=== PATIENT | female | born 1980 | race Caucasian/White ===

== ENCOUNTER → 2021-03-21 | Outpatient (CLI) | payer OTHER ==
[~2021-03-21] MED LIST: Bleph-10 Opth S15 ML BOTHEYES; FERRALET 90 DU1 EACH PO; HYDACE5 PO; IBUP600 PO; IBUP800 PO; MULVITMINE PO; OXYACE5T PO; OXYC5 PO; PROM25 PO; Zithromax250 MG PO
== END | disposition home or self-care (01) ==
LOC: LAB 13:25 → LAB SHORT 13:25
DX: N95.1 Menopausal and female climacteric states (principal)
CPT/HCPCS: 83001; 84443

== ENCOUNTER → 2021-04-18 | Outpatient (CLI) | payer OTHER | END | disposition home or self-care (01) | LOC: LAB SHORT 12:14 | DX: L82.1 Other seborrheic keratosis (principal) | CPT/HCPCS: 88305 ==